=== PATIENT | male | born 1960 | race Caucasian/White ===

== ENCOUNTER 2024-08-18 08:00 | Emergency (ER) | payer OTHER, SELFPAY ==
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
--- NOTE | ~2024-08-18 | CT_ITS ---
EXAMINATION: CT CERVICAL SPINE WITHOUT CONTRAST CLINICAL INFORMATION: Trauma COMPARISON: None available. TECHNIQUE: Thin section axial imaging with sagittal and coronal reformats. This CT examination was performed using dose optimization techniques as appropriate, variously including the following: *Automated exposure control *Adjustment of mA and/or kV according to patient size (this includes techniques or standardized protocols for targeted exams where dose is matched to indication/reason for exam; i.e. extremities or head) *Use of iterative reconstruction technique DLP: 356 mGy-cm FINDINGS: There is advanced degenerative change observed at C3-4 and C5-6 and C6-7 with disc space narrowing and anterior and posterior osteophyte formation. No encroachment on the spinal canal. Prevertebral soft tissues are normal. No fracture or destructive process. CT/CT cervical spine wo IV con IMPRESSION: Multilevel degenerative change. No acute findings. Fleischner guidelines were followed. Electronically signed by: Madan Cornelius MD 08/18/2024 11:04 AM EDT
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
[2024-08-18 08:12] VITALS: BP 168/58; PULSE 82; O2SAT 99
[2024-08-18 08:14] VITALS: BP 163/85; PULSE 89; RESP 18; TEMP 36.8; O2SAT 99; BMI 24.4
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
[2024-08-18 11:10] VITALS: BP 177/79; PULSE 77; RESP 16; TEMP 36.7; O2SAT 99
--- NOTE | 2024-08-18 11:10 | PC.NURSE ---
c collar removed per MD voss
--- NOTE | 2024-08-18 11:13 | PC.NURSE ---
patient ambulated around [place] with steady gait, no complaints at this time, made aware
[2024-08-18 11:19] VITALS: BP 177/79; PULSE 77; RESP 16; TEMP 36.7; O2SAT 99
== END 2024-08-18 11:21 | disposition home or self-care (01) ==
PROVIDERS: Emergency Provider Emergency Medicine
DX: S16.1XXA Strain of muscle, fascia and tendon at neck level, initial encounter (principal); R51.9 Headache, unspecified; M54.2 Cervicalgia; V43.52XA Car driver injured in collision with other type car in traffic accident, initial encounter; Y93.89 Activity, other specified; Y92.488 Other paved roadways as the place of occurrence of the external cause; Y99.8 Other external cause status
CPT/HCPCS: 70450; 72125; 99284